=== PATIENT | male | born 1955 | race Native Hawaiian/Other Pacific Islander ===

== ENCOUNTER 2020-10-18 10:17 | Emergency (ER) | payer BC ==
[~2020-10-18] VITALS: Ht 165.1 cm; Wt 104.3 kg
[2020-10-18 10:27] VITALS: BP 157/99
--- NOTE | 2020-10-18 10:31 | NUR ---
Ambulated to bed 7
--- NOTE | 2020-10-18 10:35 | NUR ---
64 Y/O MALE C/O RIGHT LOWER LEG PAIN. PT TRIPPED OVER A PIPE ON SUNDAY, SCRAPED RLE.PAIN IS 7/10, PULSING AND NONRADIATING. PT DID NOT TAKE ANYTHING BUT USED ICE.
--- NOTE | 2020-10-18 10:56 | NUR ---
Pt to Xray via wheelchair
[2020-10-18 11:29] VITALS: BP 143/97
--- NOTE | 2020-10-18 11:30 | NUR ---
Patient discharged with v/s stable. Written and verbal after care instructions given and explained. Patient alert, oriented and verbalized understanding of instructions. Ambulatory with steady gait. All questions addressed prior to discharge. ID band removed. Patient advised to follow up with PMD. Rx of Ibuprofen 600mg was given. Patient educated on indication of medication including possible reaction and side effects. Opportunity to ask questions provided and answered.
== END 2020-10-18 11:30 | disposition home or self-care (01) ==
LOC: MED 10:17
DX: S80.811A Abrasion, right lower leg, initial encounter (principal); I10 Essential (primary) hypertension; W18.39XA Other fall on same level, initial encounter; Y93.89 Activity, other specified; Y92.89 Other specified places as the place of occurrence of the external cause; Y99.8 Other external cause status
CPT/HCPCS: 73590; 90471; 90715; 99283